=== PATIENT | male | born 1995 | race African-American/Black ===

== ENCOUNTER 2018-01-27 15:41 | Emergency (ER) | payer MEDICAID ==
[~2018-01-27] VITALS: Ht 182.9 cm; Wt 81.6 kg
[2018-01-27 16:30] VITALS: BP 116/58
== END 2018-01-27 17:00 | disposition home or self-care (01) ==
LOC: ER 15:47
DX: L01.00 Impetigo, unspecified (principal)

== ENCOUNTER 2018-01-29 15:20 | Emergency (ER) | payer MEDICAID ==
[~2018-01-29] VITALS: Ht 182.9 cm; Wt 83.9 kg
[2018-01-29 15:36] VITALS: BP 135/72
[2018-01-29] MEDS ORDERED: LIDOCAINE 1% (LOCAL ANESTH.) PF 5ml SDV ONE (17:12)
[2018-01-29] MEDS ORDERED: cefTRIAXone SOD 1,000 MG VL IM ONE (17:15)
[2018-01-29] MEDS ORDERED: LIDOCAINE HCL (LOCAL ANESTH.) 0.5 % 50ML MDV IJ ONE (17:15)
[2018-01-29] MEDS ORDERED: LIDOCAINE 1% (LOCAL ANESTH.) PF 5ml SDV IJ ONE (17:30)
== END 2018-01-29 17:40 | disposition home or self-care (01) ==
LOC: ER 15:20
DX: J02.9 Acute pharyngitis, unspecified (principal); L01.00 Impetigo, unspecified
CPT/HCPCS: 96372; 99283; J0696

== ENCOUNTER 2018-03-21 10:49 | Emergency (ER) | payer MEDICAID ==
[~2018-03-21] VITALS: Ht 185.4 cm; Wt 81.2 kg
[2018-03-21] MEDS ORDERED: AZITHROMYCIN 250 MG TAB PO ONE (12:30)
[2018-03-21] MEDS ORDERED: cefTRIAXone SODIUM 250 MG VL IM ONE (12:30)
[2018-03-21 13:55] LABS: Urine Bacteria FEW /hpf (None Seen); Urine Blood TRACE /uL (Negative); Urine Mucus FEW (None Seen); Urine Specific Gravity 1.032 (1.001-1.035); Urine WBC 1 /hpf (0 - 3)
[2018-03-21 14:27] VITALS: BP 142/56
== END 2018-03-21 14:31 | disposition home or self-care (01) ==
LOC: ER 11:01
DX: N39.0 Urinary tract infection, site not specified (principal)
CPT/HCPCS: 81001; 96372; 99283; J0696